=== PATIENT | male | born 1980 | race Caucasian/White ===

== ENCOUNTER 2024-10-02 16:47 | Emergency (ER) | payer BC | END 2024-10-02 19:19 | disposition home or self-care (01) | LOC: MW.ED 16:47 | DX: S46.212A Strain of muscle, fascia and tendon of other parts of biceps, left arm, initial encounter (principal); M19.011 Primary osteoarthritis, right shoulder; X50.9XXA Other and unspecified overexertion or strenuous movements or postures, initial encounter | CPT/HCPCS: 73030-26-RT; 73030-RT; 99283 ==